=== PATIENT | female | born 1965 | race Caucasian/White ===

== ENCOUNTER 2021-06-11 10:16 | Emergency (ER) | payer MEDICAID, OTHER ==
[~2021-06-11] VITALS: Ht 163.8 cm; Wt 70.8 kg
[2021-06-11 10:38] VITALS: BP 162/81
[2021-06-11] MEDS ORDERED: ASPI-1749 PO (13:18)
[2021-06-11] MEDS ORDERED: METO25TE71 PO (13:19)
[2021-06-11 14:13] VITALS: BP 169/88
--- NOTE | 2021-06-11 14:16 | NUR ---
Patient discharged with v/s stable. Written and verbal after care instructions given and explained. Patient alert, oriented and verbalized understanding of instructions. Ambulatory with steady gait. All questions addressed prior to discharge. ID band removed. Patient advised to follow up with PMD. Rx of METROPOLOL AND ASPIRIN given. Patient educated on indication of medication including possible reaction and side effects. Opportunity to ask questions provided and answered.
== END 2021-06-11 14:16 | disposition home or self-care (01) ==
LOC: MED 10:16
DX: I48.91 Unspecified atrial fibrillation (principal); I10 Essential (primary) hypertension; Z79.899 Other long term (current) drug therapy; Z79.82 Long term (current) use of aspirin; Z88.0 Allergy status to penicillin
CPT/HCPCS: 36415; 71045; 84484; 93005; 99285